=== PATIENT | female | born 1970 | race Two or more races ===

== ENCOUNTER → 2025-02-15 | Outpatient (CLI) | payer OTHER, SELFPAY ==
--- NOTE | 2025-02-15 10:30 | XR_ITS ---
Examination: Breast ultrasound complete, bilateral Date and time of exam: February 15, 2025 1022 hours INDICATIONS: 2:00 nodule 8 x 7 mm right breast on sonogram May 18, 2024 Technique: Real-time grayscale ultrasonographic imaging bilateral breasts, including all 4 quadrants as well as nipple retroareolar and axillary regions. Findings: Sonographic images right breast 2:00 nodule circumscribed 5 x 6 mm Sonographic images left breast No cystic or solid mass IMPRESSION: BI-RADS Category 2: Benign findings
--- NOTE | 2025-02-15 11:30 | XR_ITS ---
Examination: Diagnostic digital mammography, bilateral Computer aided detection 3-D breast Tomosynthesis, bilateral Date and time of exam: February 15, 2025 1040 hours INDICATIONS: Mammogram October 26, 2021 2:00 asymmetry 15 mm Technique: Nonmagnified MLO, CC views of the breasts to been obtained, reconstructed from 3-D Tomosynthesis images. R2 computer aided detection program utilized for evaluation of suspicious masses and/or abnormal calcifications. 3-D Tomosynthesis images obtained. Findings: The breasts are heterogeneously dense, which may obscure small masses Benign calcifications. No definite suspicious masses Impression: BI-RADS Category 2: Benign findings Recommend yearly follow-up mammography Recommend 3 month follow-up bilateral breast sonography with the radiologist in attendance.
== END | disposition home or self-care (01) ==
PROVIDERS: PCP Physician Assistant; Referring Provider Physician Assistant; Visit Provider Physician Assistant
DX: R92.323 Mammographic fibroglandular density, bilateral breasts (principal); N63.11 Unspecified lump in the right breast, upper outer quadrant
CPT/HCPCS: 76641; 77062; 77066; G0279